=== PATIENT | female | born 1965 | race Caucasian/White ===

== ENCOUNTER → 2024-12-25 | Outpatient (CLI) | payer OTHER ==
[~2024-12-25] MED LIST: ASCO500 PO; CHOL10002; CRUTCH3 USE; FISH OIL 1,001000 MG PO; GABA300 PO; HYDACE5; HYDACE5 PO; Hair, Skin & N1 EACH PO; IBUP800 PO; IRON150C PO; LORPSEER24; NAPR220 PO; OSTEO BI-FLEX1 EAC2 PO; Prinivil5 MG PO; Synthroid25 MCG PO; TOCO1000 PO; TUMERIC PO; VALA500; VALARIAN ROOT; VENL37.5 PO; [UNRECOGNIZED DRUG - OTHER] PO
[2025-01-08 10:52] LABS: HPV HIGH RISK BY TMA Not Detected; HPV SOURCE Cervical
== END | disposition home or self-care (01) ==
LOC: LAB SHORT 15:25 → LAB 15:25
PROVIDERS: Family Medicine Adult Medicine
DX: Z12.4 Encounter for screening for malignant neoplasm of cervix (principal)
CPT/HCPCS: 87624; G0123

== ENCOUNTER → 2025-08-12 | Outpatient (CLI) | payer OTHER ==
[2025-08-12 16:33] LABS: CHOL/HDL RATIO 3.1; Cholesterol 153 mg/dL (50-200); Ferritin, Serum 123 ng/mL (8-252); HDL Cholesterol 50 mg/dL (>39); LDL/HDL RATIO 0.9; Low Density Lipoprotein Chol 45 mg/dL (0-110); Thyroid Stimulating Hormone 2.300 uIU/mL (0.360-4.800); Total Iron Binding Capacity 278 ug/dL (250-450); Triglycerides 289 mg/dL (30-160); Very Low Density Lipoprot Chol 57 mg/dL (6-32)
== END ==
LOC: LAB SHORT 12:53 → LAB 12:53
PROVIDERS: Family Medicine
DX: E78.2 Mixed hyperlipidemia (principal); G47.10 Hypersomnia, unspecified; R53.83 Other fatigue
CPT/HCPCS: 80061; 82607; 82728; 82746; 83540; 83550; 84443